=== PATIENT | male | born 1950 | race Caucasian/White ===

== ENCOUNTER → 2018-05-29 13:57 | Outpatient (CLI) | payer MEDICARE, SELFPAY ==
--- NOTE | 2018-05-29 | DI.RAD.S_ITS ---
PROCEDURE: XR LUMBAR SPINE 2-3V INDICATIONS: BACK PAIN TECHNIQUE: 3 views of the lumbar spine were acquired. COMPARISON: None. FINDINGS: Bones: 5 [id number] vertebrae are present. There is mildly levoscoliotic bony alignment. No vertebral body compression fractures. No suspicious bony lesions. Soft tissues: Overlying bowel gas pattern is normal. No suspicious soft tissue calcifications. IMPRESSION: Mild levoscoliosis, mild to moderate degenerative disc disease along the lumbosacral spine most prominent at L5-S1 and with associated facet osteoarthritis at L4-5 and L5-S1 to the degree that spinal and foraminal stenosis could be present. Dictated by: Greg Wiley M.D. on 05/29/2018 at 15:41 Approved by: Greg Wiley M.D. on 05/29/2018 at 15:42
== END ==
PROVIDERS: Family Provider Physician Assistant; PCP Physician Assistant; Visit Provider Physician Assistant
DX: M51.37 Other intervertebral disc degeneration, lumbosacral region (principal); M47.816 Spondylosis without myelopathy or radiculopathy, lumbar region; M47.817 Spondylosis without myelopathy or radiculopathy, lumbosacral region; M41.86 Other forms of scoliosis, lumbar region; M54.9 Dorsalgia, unspecified
CPT/HCPCS: 72100

== ENCOUNTER → 2018-07-11 14:01 | Outpatient (CLI) | payer MEDICARE, SELFPAY ==
--- NOTE | 2018-07-11 | DI.MRI.S_ITS ---
PROCEDURE: MR LUMBAR SPINE WO CON INDICATIONS: LOW BACK PAIN TECHNIQUE: Noncontrast sagittal T1 spin echo and T2 fast echo, sagittal STIR, axial T1 and T2 fast spin echo through the lumbar spine. In this patient, coronal T2-weighted images were also performed. COMPARISON: [facility], CT, KIDNEY/ URETER/BLADDER, 12/15/2009, 12:47. [facility], CR, XR LUMBAR SPINE 2-3V, 05/29/2018, 13:42. FINDINGS: Image quality: Excellent. Alignment and Curvature: Mild levoconvex scoliotic curvature is noted. Bone Marrow: Marrow is of normal overall signal. No acute vertebral body compression fractures. Scattered foci are seen, which are hyperintense on T1-weighted and T2-weighted imaging, which are most consistent with benign vertebral body hemangiomas. The most prominent of these is seen within the L1 vertebral body. On the 2009 CT, there is a characteristic vertical corduroy trabecular pattern seen. Spinal Cord: Conus medullaris terminates at the L1 level. Visualized cord demonstrates normal signal and size. Paraspinous Soft Tissues: No paravertebral masses. T12-L1: Normal appearance. L1-L2: Normal appearance. L2-L3: No significant abnormality is seen. L3-L4: The disc height is well-preserved. Loss of disc signal is seen at this level. Mild generalized disc bulge is seen. No significant neural foraminal or central canal narrowing are seen. L4-L5: The disc height is well-preserved. Loss of disc signal is seen at this level. Mild to moderate disc bulge is seen. Mild to moderate facet hypertrophy is seen. Minimal bilateral neural foraminal narrowing is seen. Mild central canal narrowing is seen. L5-S1: The disc height and disc signal are relatively well-preserved. Mild disc bulge is seen, which is eccentric to the left. No significant neural foraminal or central canal narrowing are seen. IMPRESSION: Levoconvex scoliotic curvature and overall mild lower lumbar spine degenerative change. Dictated by: Luis Wick M.D. on 07/11/2018 at 14:52 Approved by: Luis Wick M.D. on 07/11/2018 at 14:56
== END ==
PROVIDERS: Family Provider Physician Assistant; PCP Physician Assistant; Visit Provider Orthopaedic Surgery
DX: M51.26 Other intervertebral disc displacement, lumbar region (principal); M51.27 Other intervertebral disc displacement, lumbosacral region; M48.061 Spinal stenosis, lumbar region without neurogenic claudication; M41.9 Scoliosis, unspecified
CPT/HCPCS: 72148

== ENCOUNTER → 2020-11-03 15:07 | Outpatient (CLI) | payer OTHER, SELFPAY | PROVIDERS: Family Provider Physician Assistant; PCP Family Medicine Sports Medicine; Referring Provider Family Medicine Sports Medicine; Visit Provider Family Medicine | DX: E11.621 Type 2 diabetes mellitus with foot ulcer (principal); L97.411 Non-pressure chronic ulcer of right heel and midfoot limited to breakdown of skin; E11.40 Type 2 diabetes mellitus with diabetic neuropathy, unspecified; Z79.4 Long term (current) use of insulin | CPT/HCPCS: 11042; 99204 ==

== ENCOUNTER → 2020-11-10 09:10 | Outpatient (CLI) | payer OTHER, SELFPAY | LOC: WC 09:11 | PROVIDERS: Family Provider Physician Assistant; PCP Family Medicine Sports Medicine; Referring Provider Family Medicine Sports Medicine; Visit Provider Family Medicine | DX: E11.40 Type 2 diabetes mellitus with diabetic neuropathy, unspecified (principal); L97.411 Non-pressure chronic ulcer of right heel and midfoot limited to breakdown of skin | CPT/HCPCS: 11042; 99213 ==

== ENCOUNTER → 2020-11-24 13:40 | Outpatient (CLI) | payer OTHER, SELFPAY | PROVIDERS: Family Provider Physician Assistant; PCP Family Medicine Sports Medicine; Referring Provider Family Medicine Sports Medicine; Visit Provider Family Medicine | DX: E11.621 Type 2 diabetes mellitus with foot ulcer (principal); L97.411 Non-pressure chronic ulcer of right heel and midfoot limited to breakdown of skin; E11.40 Type 2 diabetes mellitus with diabetic neuropathy, unspecified | CPT/HCPCS: 11042 ==

== ENCOUNTER → 2020-12-01 14:24 | Outpatient (CLI) | payer OTHER, SELFPAY | PROVIDERS: Family Provider Physician Assistant; PCP Family Medicine Sports Medicine; Referring Provider Family Medicine Sports Medicine; Visit Provider Family Medicine | DX: E11.621 Type 2 diabetes mellitus with foot ulcer (principal); L97.411 Non-pressure chronic ulcer of right heel and midfoot limited to breakdown of skin; E11.40 Type 2 diabetes mellitus with diabetic neuropathy, unspecified; R60.0 Localized edema | CPT/HCPCS: 99213 ==

== ENCOUNTER → 2020-12-15 15:50 | Outpatient (CLI) | payer OTHER, SELFPAY | LOC: WC 15:50 | PROVIDERS: Family Provider Physician Assistant; PCP Family Medicine Sports Medicine; Referring Provider Family Medicine Sports Medicine; Visit Provider Family Medicine | DX: E11.621 Type 2 diabetes mellitus with foot ulcer (principal); L97.411 Non-pressure chronic ulcer of right heel and midfoot limited to breakdown of skin; E11.40 Type 2 diabetes mellitus with diabetic neuropathy, unspecified | CPT/HCPCS: 97597 ==

== ENCOUNTER → 2020-12-22 14:03 | Outpatient (CLI) | payer OTHER, SELFPAY | LOC: WC 14:04 | PROVIDERS: Family Provider Physician Assistant; PCP Family Medicine Sports Medicine; Referring Provider Family Medicine Sports Medicine; Visit Provider Family Medicine | DX: E11.621 Type 2 diabetes mellitus with foot ulcer (principal); L97.411 Non-pressure chronic ulcer of right heel and midfoot limited to breakdown of skin; E11.40 Type 2 diabetes mellitus with diabetic neuropathy, unspecified | CPT/HCPCS: 97597 ==

== ENCOUNTER → 2020-12-29 13:43 | Outpatient (CLI) | payer OTHER, SELFPAY | LOC: WC 13:44 | PROVIDERS: Family Provider Physician Assistant; PCP Family Medicine Sports Medicine; Referring Provider Family Medicine Sports Medicine; Visit Provider Family Medicine | DX: E11.621 Type 2 diabetes mellitus with foot ulcer (principal); E11.40 Type 2 diabetes mellitus with diabetic neuropathy, unspecified | CPT/HCPCS: 99213 ==

== ENCOUNTER 2022-01-16 20:45 | Emergency (ER) | payer OTHER, SELFPAY ==
[2022-01-16 20:57] VITALS: BP 161/84; PULSE 95; RESP 18; TEMP 36.6; O2SAT 95; BMI 45.0
--- NOTE | 2022-01-16 21:00 | DI.RAD.S_ITS ---
PROCEDURE: XR FOOT RT MIN 3V INDICATIONS: foreign body TECHNIQUE: 3 views of the foot were acquired. COMPARISON: None. FINDINGS: Bones: No fractures or dislocations. No suspicious bony lesions. Calcaneal spurs noted. Soft tissues: No tibiotalar joint effusion. Achilles tendon appears normal. Metallic nail foreign body noted in the medial soft tissues extending from the plantar surface IMPRESSION: Thin nail foreign body in the midfoot medial soft tissues extending from the plantar surface. Calcaneal spurs Approved by: Marcial Crowder M.D. on 01/16/2022 at 21:18
--- NOTE | 2022-01-16 22:10 | ED_ITS ---
HPI - Skin/Abscess/Foreign Bdy General Chief complaint: Skin/Abscess/Foreign Body Stated complaint: Stepped on nail right foot Time Seen by Provider: 01/16/22 20:58 Source: patient Mode of arrival: Ambulatory History of Present Illness HPI narrative: 71M non smoker with peripheral neuropathy presents with the chief complaint of foreign body in right foot. He is unclear about the specifics because he has neuropathy. He thinks he was walking barefoot but and thinks it may have happened a few days ago. He denies much the way pain. He has no fever chills. He denies nausea or vomiting. He has no drainage. Related Data Home Medications Medication Instructions Recorded Confirmed LEVOTHYROXINE SODIUM 300 mcg #0 09/27/12 11/10/21 aspirin 81 mg tablet,delayed 81 mg PO QDAY #0 09/27/12 11/10/21 release glimepiride 4 mg tablet (Amaryl) 4 mg PO BIDCC #0 09/27/12 11/10/21 hydroxyzine HCl 25 mg tablet 25 mg PO QDAY #0 09/27/12 11/10/21 metformin 500 mg tablet 1,500 mg PO #0 09/27/12 11/10/21 (Glucophage) omeprazole 20 mg capsule,delayed #0 09/27/12 11/10/21 release ramipril 10 mg capsule 10 mg PO BID #0 09/27/12 11/10/21 zolpidem 10 mg tablet (Ambien) #0 09/27/12 11/10/21 gabapentin 300 mg capsule 300 mg PO TID #0 01/15/17 11/10/21 (Neurontin) hydrocodone bitartrate 10 mg 10 mg PO QID #0 01/15/17 11/10/21 capsule, oral only, extended rel 12 hr (Zohydro ER) ResMed AirSense 11 Auto 11/10/21 11/10/21 Previous Rx's Medication Instructions Recorded ciprofloxacin HCl 500 mg tablet 500 mg PO BID #20 tab 01/16/22 (Cipro) Allergies Allergy/AdvReac Type Severity Reaction Status Date / Time codeine [CODEINE] Allergy Unknown Verified 01/16/22 21:00 Review of Systems Review of Systems Narrative: GENERAL: Denies chills, fatigue, malaise, fever, sweats. HEENT: Denies sinus pain, ear pain, sore throat, difficulty swallowing, dizziness. RESPIRATORY: Denies dyspnea, cough, wheezing, hemoptysis, sputum. CARDIOVASCULAR: Denies chest pain, palpitations, orthopnea, edema, GASTROINTESTINAL: Denies nausea, vomiting, abdominal pain, diarrhea, constipation, melena. : Denies dysuria, frequency, incontinence, hematuria, urinary retention. MUSCULOSKELETAL: See HPI SKIN: Denies rash, skin lesions, or other NEUROLOGIC: Denies weakness, headache, numbness, change in speech, confusion, seizures, incoordination. PSYCHIATRIC: No concerning psychosocial issues. 12 point review of systems is negative except for those stated above Patient History Medical History Excessive daytime sleepiness Insomnia, persistent Morbid obesity with body mass index (BMI) of 40.0 to 49.9 Obstructive sleep apnea of adult Snoring Social History Smoking Status: Never smoker Smoking Status: Never smoker alcohol intake frequency: other Substance Use Type: does not use Exam Narrative Exam Narrative: GEN: AOx3 and in mild distress EYES: Pupils are equal, round, and reactive to light and accommodation. Extraoccular muscles are intact bilaterally. There is no subconjunctival hemorrhage or exudate. CHEST: Lungs are clear to auscultation bilaterally and free of wheezes, rales, or rhonchi. Heart rate is regular rhythm, there are no murmurs, clicks, rubs, or gallops. There is no chest wall tenderness. ABD: Abdomen is soft and nontender. There is no guarding or rebound. Bowel sounds are normal in all 4 quadrants. There is no mass or organomegaly. EXT: Obvious foreign body consistent with sewing needle and sole of right foot Full painless ROM of all extremities with no loss of sensation or strength. SKIN: Warm, pink, and dry. No erythema or rash Initial Vital Signs Initial Vital Signs: Vital Signs Temperature 98 F 01/16/22 20:57 Pulse Rate 95 H 01/16/22 20:57 Respiratory Rate 18 01/16/22 20:57 Blood Pressure 161/84 H 01/16/22 20:57 Pulse Oximetry 95 01/16/22 20:57 Procedures Foreign Body OTHER Time Out Performed: yes Foreign Body Removal Site: right and foot Description of foreign body: needle Sedation/Analgesia: none Technique: manual removal Confirmed by:: direct visualization Complications: none Post-procedure exam: awake, alert Course Orders Ordered: ED Orders 01/16/22 21:00 XR foot RT min 3V Stat Discontinued Medications Diphtheria/Tetanus/Acell Pertussis (Tet,Diph,Pertuss(Acell),Vac/Pf 0.5 Ml Syringe) 0.5 ml IM .ONCE ONE Stop: 01/16/22 21:01 Last Admin: 01/16/22 22:22 Dose: 0.5 ml Documented by: LISA Levofloxacin (Levofloxacin 250 Mg Tablet) 500 mg PO NOW ONE Stop: 01/16/22 22:12 Last Admin: 01/16/22 22:21 Dose: 500 mg Documented by: LISA Lidocaine/Sodium Bicarbonate (Lido 1%/Sod Bicarb 8.4% (10ml) 10 Ml Syringe) 10 ml INJ NOW ONE Stop: 01/16/22 22:12 Last Admin: 01/16/22 22:25 Dose: Not Given Documented by: LISA Vital Signs Vital signs: Vital Signs - 8 hr 01/16/22 22:57 Pulse Rate 98 H Respiratory Rate 18 Blood Pressure 160/90 H Pulse Oximetry 98 MDM - Skin/Abscess/Foreign Bdy Imaging Data Extremity x-ray #1: Radiologist's Impression: [place] [address] XRay Report Signed Patient: Arnold Viera MR#: [id number] : 1950 Acct:[id number] Age/Sex: 71 / M Date of Service: 01/16/22 Loc: ED Accession Number: [id number] ?? Procedure: XR foot RT min 3V Ordering Provider: Aj Bonilla D.O. PROCEDURE:? XR FOOT RT MIN 3V ? INDICATIONS:? foreign body ? TECHNIQUE:? 3 views of the foot were acquired.? ? COMPARISON:? None. ? FINDINGS:? ? Bones:? No fractures or dislocations.? No suspicious bony lesions.? Calcaneal spurs noted. ? Soft tissues:? No tibiotalar joint effusion.? Achilles tendon appears normal.? Metallic nail foreign body noted in the medial soft tissues extending from the plantar surface ? ? IMPRESSION:? ? Thin nail foreign body in the midfoot medial soft tissues extending from the plantar surface. ? Calcaneal spurs ? ? Approved by: Marcial Crowder M.D. on 01/16/2022 at 21:18? Discharge Plan Departure Patient Disposition: Home Clinical Impression: Foreign body (FB) in soft tissue Instructions: DI for Removal of Foreign Body From Skin Activity Restrictions/Additional Instructions: *You have been diagnosed with [foreign body removed from right foot *What to do: *Please continue to take your regular medications as directed. [X ] New medication prescriptions sent to your pharmacy: [ [facility] in [place]] [ ] New medication written as a paper prescription [ ] No new medications given *Please follow up with your primary care provider in 2-3 days, call for an appointment. Let them know you were seen in the Emergency Department and that we ask that you be seen in follow up. We will electronically transmit a record of today's note if your PCP is in our system *If you do not have a primary care provider please contact the [facility] Resource line at [phone]. They will ask some questions about your medical history and help get you set up with a doctor in the community. *Return to Emergency Department if you should have any new, worsening or concerning symptoms, such as [fever greater than 101 F, shaking chills, worsening pain, persistent vomiting or other bothersome symptoms] Prescriptions: New ciprofloxacin HCl [Cipro] 500 mg tablet 500 mg PO BID Qty: 20 0RF No Action hydroxyzine HCl 25 MG tablet 25 mg PO QDAY Qty: 0 0RF aspirin 81 MG tablet,delayed release (DR/EC) 81 mg PO QDAY Qty: 0 0RF glimepiride [Amaryl] 4 MG tablet 4 mg PO BIDCC Qty: 0 0RF metformin [Glucophage] 500 MG tablet 1,500 mg PO Qty: 0 0RF zolpidem [Ambien] 10 MG tablet Qty: 0 0RF ramipril 10 MG capsule 10 mg PO BID Qty: 0 0RF omeprazole 20 MG capsule,delayed release(DR/EC) Qty: 0 0RF LEVOTHYROXINE SODIUM 300 mcg Qty: 0 0RF gabapentin [Neurontin] 300 MG capsule 300 mg PO TID Qty: 0 0RF hydrocodone bitartrate [Zohydro ER] 10 MG capsule, oral only, ER 12hr 10 mg PO QID Qty: 0 0RF (DME) ResMed AirSense 11 Auto See Rx Instructions .ROUTE .MEDSUPPLY 0RF Rx Instructions: CPAP Min: 8 Max: 16 DME: PHM Referrals: Blaze Gilmore MD [Primary Care Provider] -
[2022-01-16] MEDS: levoFLOXacin 250 MG TABLET 500 MG PO (22:21)
[2022-01-16] MEDS: TET,DIPH,PERTUSS(ACELL),VAC/PF 0.5 ML SYRINGE IM (22:22)
--- NOTE | 2022-01-16 22:34 | PC.NURSE ---
Dorsal and ventral puncture site on R foot cleaned with CHG and dressed
[2022-01-16 22:57] VITALS: BP 160/90; PULSE 98; RESP 18; O2SAT 98
== END 2022-01-16 23:00 | disposition home or self-care (01) ==
PROVIDERS: Emergency Provider Emergency Medicine; Family Provider Physician Assistant; PCP Family Medicine
DX: M79.5 Residual foreign body in soft tissue (principal); Z23 Encounter for immunization; W45.8XXA Other foreign body or object entering through skin, initial encounter
CPT/HCPCS: 10120; 73630; 90471; 99283; 90715

== ENCOUNTER → 2022-08-23 14:40 | Outpatient (CLI) | payer OTHER, SELFPAY ==
--- NOTE | 2022-08-23 | DI.ECHO.S_ITS ---
[facility]---------+ [facility] +---------+ : : [address] : [place] [address] : : : : [id number] : : : : Phone: [phone] Echocardiogram Report + + :Name: YO LOCKWOOD Study Date: 08/23/2022 Height: 70 in : :[facility] ReadingLocation: Weight: 309 lb : : Gender: Male BSA: 2.5 m2 : :: 1950 Age: 72 yrs BP: 214/110 mmHg: :Reason For Study: Murmur : :Ordering Physician: VI, : :[place] Performed By: Wilmer Salazar : :Referring: [place] LEBRON : + + Interpretation Summary Normal left ventricle size with ejection fraction 60-65%. Mild aortic valve sclerosis. Procedure: A two-dimensional transthoracic echocardiogram with color flow and Doppler was performed. The study quality was technically adequate. There is no prior echocardiogram noted for this patient. A contrast injection of Definity was performed to improve assessment of LV function. The patient was in sinus tachycardia with heart rates between 88-100 bpm during the exam. Left Ventricle: The left ventricle is normal in size and wall thickness. The ejection fraction is estimated to be 60-65%. There are no focal wall motion abnormalities. Diastolic function could not be accurately assessed due to unobtainable data. Right Ventricle: The right ventricle is normal in size and function. Atria: Both atria are normal in size. The interatrial septum grossly appears intact with no obvious evidence for an atrial septal defect. Mitral Valve: The mitral valve is normal in structure and function. There is no mitral regurgitation noted. Aortic Valve: There is mild aortic valve sclerosis. No aortic regurgitation is present. Tricuspid Valve: The tricuspid valve is normal in structure and function. There is a trace or physiologic amount of tricuspid regurgitation. Pulmonary artery pressures cannot be estimated because of the lack of a measurable TR jet velocity. Pulmonic Valve: The pulmonic valve is normal in structure and function. There is no pulmonic valvular regurgitation. Great Vessels: The aortic root is normal size. The dimensions of the ascending aorta are normal. The inferior vena cava was not visualized. Pericardium/ Pleura There is no pericardial effusion. There is no pleural effusion. MMode/2D Measurements & Calculations LVIDd: 4.5 cm LVOT diam: 2.2 cm LVIDs: 3.2 cm Ao root diam: 3.5 cm FS: 28.9 % asc Aorta Diam: 3.6 cm IVSd: 1.0 cm LVPWd: 1.1 cm LV austin. diameter/BSA (cm/m^2): 1.8 LV sys. diameter/BSA (cm/m^2): 1.3 LA dimension: 2.8 cm RA long axis: 5.9 cm LA A2 area: 18.2 cm2 LA A4 area: 20.9 cm2 LA length (vol): 6.1 cm LA vol: 53.4 ml LA vol index: 21.3 ml/m2 TAPSE_phl: 2.4 cm Doppler Measurements & Calculations Ao V2 max: 218.0 cm/sec LVOT Max Db: 129.0 cm/sec Ao V2 mean: 149.0 cm/sec LV V1 max P.7 mmHg Ao max P.0 mmHg LV V1 VTI: 23.0 cm Ao mean P.0 mmHg VINOD(I,D): 2.3 cm2 Ao V2 VTI: 38.6 cm VINOD(V,D): 2.2 cm2 sev ratio: 0.60 VINOD indexed to BSA (cm^2/m^2): 0.90 MV E max db: 104.0 cm/sec SV(LVOT): 87.4 ml MV A max db: 116.0 cm/sec MV E/A: 0.90 Med Peak E' Db: 5.4 cm/sec E/E' med: 19.2 Lat Peak E' Db: 7.2 cm/sec E/E' lat: 14.5 E/e' average: 16.9 MV dec time: 0.25 sec AV VR_phl: 0.59 MV P1/2t-pr_phl: 73.0 msec VINOD(VTI)/BSA_phl: 0.90 Electronically signed by: Ashwin Pat on Reading Physician:08/23/2022 08:23 PM
== END ==
PROVIDERS: Family Provider Physician Assistant; PCP Family Medicine; Referring Provider Internal Medicine; Visit Provider Family Medicine
DX: I35.8 Other nonrheumatic aortic valve disorders (principal); R01.1 Cardiac murmur, unspecified
CPT/HCPCS: 93306; C8929; Q9957

== ENCOUNTER 2024-01-22 19:50 | Emergency (ER) | payer OTHER, SELFPAY ==
[2024-01-22 20:09] VITALS: BP 156/74; PULSE 107; RESP 20; TEMP 37; O2SAT 96; BMI 43.1
--- NOTE | 2024-01-22 20:47 | PC.NURSE ---
Bilateral lower extremity sensation starts at mid oates. Bilateral upper extremity sensation can be distinguish in finger. Pt able to wiggle fingers and feet. However, lower extremities cause shooting spasms.
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
[2024-01-22] MEDS: MORPHINE 4 MG/ML INJ IM (22:58)
[2024-01-22 23:02] VITALS: BP 141/75; PULSE 120; RESP 16; O2SAT 93
== END 2024-01-22 23:11 | disposition home or self-care (01) ==
PROVIDERS: Emergency Provider Emergency Medicine; Family Provider Physician Assistant; PCP Family Medicine
DX: G62.9 Polyneuropathy, unspecified (principal)
CPT/HCPCS: 82962; 96372; 99283; J2270

== ENCOUNTER 2024-01-23 16:11 | Emergency (ER) | payer OTHER, SELFPAY ==
[2024-01-23 16:35] VITALS: BP 146/72; PULSE 107; RESP 20; TEMP 38.4; O2SAT 92; BMI 45.8
--- NOTE | 2024-01-23 16:42 | DI.RAD.S_ITS ---
PROCEDURE: XR CHEST 1V INDICATIONS: suspected sepsis TECHNIQUE: One view of the chest was acquired. COMPARISON: [facility], , CHEST 2 VIEW, 10/22/2014, 13:34. FINDINGS: Surgical changes and devices: None. Lungs and pleura: Very low lung volumes. Possible left lung base opacity. Mediastinum: Enlarged cardiomediastinal contours are indeterminate in the setting of very low lung volumes. Possible hiatal hernia is seen. Bones and chest wall: Degenerative changes. IMPRESSION: Limited single view radiograph with very low lung volumes. There is a possible left lung base opacity which may be infectious/inflammatory versus atelectasis. Consider future imaging surveillance to assess for resolution. Enlarged cardiomediastinal contours are indeterminate in the setting of low lung volumes. A possible hiatal hernia is also seen. Dictated by: Alan Gonsalves M.D. on 01/23/2024 at 17:47 Approved by: Alan Gonsalves M.D. on 01/23/2024 at 17:48
[2024-01-23 17:09] LABS: Add Manual Diff / Slide Review NO; Basophils Absolute Auto 0 /uL (0-100); Basophils Percent Auto 0.5 % (0-2); Eosinophils Absolute Auto 0 /uL (0-450); Eosinophils Percent Auto 0.5 % (2-4); Hematocrit 35.4 % (41-53); Hemoglobin 11.9 g/dL (13.5-17.5); Lymphocytes Absolute Auto 900 /uL (1100-4500); Lymphocytes Percent Auto 9.4 % (25-40); Mean Corpuscular HGB Conc 33.5 % (30-36); Mean Corpuscular Hemoglobin 29.9 PG (26-34); Mean Corpuscular Volume 89.3 fL (80-100); Monocytes Absolute Auto 600 /uL (0-900); Neutrophils Absolute Auto 7800 /uL (1500-7000); Neutrophils Percent Auto 83.6 % (50-75); Platelet Count 189 X10^3/uL (150-400); Red Blood Cell Count 3.97 X10^6/uL (4.5-5.9); Red Cell Distribution Width 14.2 % (11.6-14.8); White Blood Cell Count 9.4 X10^3/uL (4.5-11.0)
[2024-01-23 17:14] LABS: INR 1.4 (0.9-1.3); Prothrombin Time 16.2 SECONDS (9.4-12.5)
[2024-01-23 17:17] LABS: PTT Partial Thromboplastin Tim 40 SECONDS (25.1-36.5)
[2024-01-23 17:22] LABS: Lactate (Lactic Acid) 1.8 mmol/L (0.7-2.1)
[2024-01-23 17:23] LABS: Alanine Aminotransferase 27 IU/L (<50); Albumin 4.7 g/dL (3.5-5.0); Albumin Globulin Ratio 1.7 (1.0-2.8); Alkaline Phosphatase 59 U/L (38-126); Aspartate Aminotransferase 22 IU/L (17-59); BUN Creatinine Ratio 19.2 (6-22); Bilirubin Total 0.5 mg/dL (0.2-1.3); Blood Urea Nitrogen 14 mg/dL (9-20); Calcium 9.2 mg/dL (8.4-10.2); Carbon Dioxide 24 mmol/L (22-32); Chloride 100 mmol/L (98-107); Estimated Glomerular Filt Rate > 60 mL/min (>60); Globulin 2.8 g/dL (1.7-4.1); Glucose 193 mg/dL (80-110); HEMOLYSIS < 15 (0-50); Lipase 59 U/L (23-300); Potassium 4.8 mmol/L (3.4-5.1); Sodium 132 mmol/L (137-145); Total Protein 7.5 g/dL (6.3-8.2)
[2024-01-23 17:47] VITALS: PULSE 106; RESP 26
[2024-01-23] MEDS: SODIUM CHLORIDE 0.9% 1,000 ML 1000 ML IV (17:49)
[2024-01-23 17:50] VITALS: BP 146/69; PULSE 107; RESP 26; O2SAT 94
[2024-01-23 18:00] VITALS: BP 163/76; PULSE 108; RESP 31; O2SAT 94
--- NOTE | 2024-01-23 18:01 | ED.FEVER ---
HPI - Fever General Chief Complaint: Fever Stated Complaint: muslce spasm/fever/ PCP want blood/ XRAY Time Seen by Provider: 01/23/24 17:28 Source: patient and family Mode of arrival: Wheelchair History of Present Illness HPI Narrative: 73-year-old male with history of diabetes, gout, hypothyroidism, chronic back pain presents from his doctor's office for fever. Patient was seen last night in our emergency department for neuropathy and subsequently discharged home. He saw his doctor's office today for a follow up where he was found to have a fever of 104. He was referred to the emergency department for workup. Patient states that other than his neuropathy flare-up he has felt in his usual state of health. He states his primary concern is the irritating prickling/burning sensation in his hands and feet from his neuropathy. Related Data Home Medications Medication Instructions Recorded Confirmed LEVOTHYROXINE SODIUM 300 mcg ##0 09/27/12 05/12/22 aspirin 81 mg tablet,delayed 81 mg PO QDAY ##0 09/27/12 05/12/22 release glimepiride 4 mg tablet (Amaryl) 4 mg PO BIDCC ##0 09/27/12 05/12/22 hydroxyzine HCl 25 mg tablet 25 mg PO QDAY ##0 09/27/12 05/12/22 metformin 500 mg tablet 1,500 mg PO ##0 09/27/12 05/12/22 (Glucophage) omeprazole 20 mg capsule,delayed ##0 09/27/12 05/12/22 release ramipril 10 mg capsule 10 mg PO BID ##0 09/27/12 05/12/22 zolpidem 10 mg tablet (Ambien) ##0 09/27/12 05/12/22 gabapentin 300 mg capsule 300 mg PO TID ##0 01/15/17 05/12/22 (Neurontin) hydrocodone bitartrate 10 mg 10 mg PO QID ##0 01/15/17 05/12/22 capsule, oral only, extended rel 12 hr (Zohydro ER) ResMed AirSense 11 Auto 11/10/21 05/12/22 Previous Rx's Medication Instructions Recorded ciprofloxacin HCl 500 mg tablet 500 mg PO BID #20 tabs 01/16/22 (Cipro) gabapentin 300 mg capsule 1,200 mg (4 x 300 mg) PO TID 3 01/22/24 days #36 caps cefpodoxime 200 mg tablet 200 mg PO Q12H #20 tabs 01/23/24 Allergies Allergy/AdvReac Type Severity Reaction Status Date / Time codeine [CODEINE] Allergy Severe Anaphylaxis Verified 01/23/24 16:41 Review of Systems Review of Systems Narrative: Negative except as noted above Patient History Medical History Morbid obesity with body mass index (BMI) of 40.0 to 49.9 Excessive daytime sleepiness Insomnia, persistent Obstructive sleep apnea of adult Snoring Social History Smoking Status: Never smoker Smoking Status: Never smoker alcohol intake frequency: other Substance Use Type: does not use Exam Initial Vital Signs Initial Vital Signs: Vital Signs Temperature 101.2 F H 01/23/24 16:35 Pulse Rate 107 H 01/23/24 16:35 Respiratory Rate 20 01/23/24 16:35 Blood Pressure 146/72 H 01/23/24 16:35 Pulse Oximetry 92 01/23/24 16:35 Oxygen Delivery Method Room Air 01/23/24 16:35 Const: Awake, alert, appears chronically unwell, nontoxic Cardiac: Tachycardia, regular rhythm RESP: unlabored, clear bilaterally, no wheezing GI: Soft, nontender, nondistended MSK: Atraumatic, full range of motion, pulses equal Skin: Warm, Dry, intact, no rashes Neuro: AO x3, CN II-XII grossly intact, moves all extremities Course Orders Ordered: ED Orders 01/23/24 18:50 Urinalysis and Microscopic Stat Urine Culture Stat 01/23/24 19:07 CT chest w con Stat Discontinued Medications Sodium Chloride (Normal Saline 0.9%) 1,000 mls @ 1,000 mls/hr IV BOLUS ONE Stop: 01/23/24 17:41 Last Infusion: 01/23/24 19:04 Dose: Infused Documented By: Admin: 01/23/24 17:49 Dose: 1,000 mls/hr Documented By: ANGELINE Ceftriaxone Sodium 2,000 mg/ (Sodium Chloride) 100 mls @ 200 mls/hr IV NOW ONE Stop: 01/23/24 19:52 Last Infusion: 01/23/24 21:05 Dose: Infused Documented By: Admin: 01/23/24 20:18 Dose: 200 mls/hr Documented By: Ondansetron HCl (Ondansetron 4 Mg/2 Ml Inj) 4 mg IV NOW PRN PRN Reason: Nausea And Vomiting Ondansetron HCl (Ondansetron 4 Mg Odt) 4 mg SL NOW PRN PRN Reason: Nausea And Vomiting Vital Signs Vital signs: Vital Signs - 8 hr 01/23/24 21:15 Pulse Rate 109 H Respiratory Rate 18 Blood Pressure 149/73 H Pulse Oximetry 94 Oxygen Delivery Method Room Air MDM - Fever Differential Diagnosis Differential diagnosis: Likely cellulitis, fever of unknown origin and gastroenteritis Lab Data 01/23/24 16:53 01/23/24 16:53 Labs: Lab Results 01/23/24 01/23/24 Range/Units 16:53 18:50 WBC 9.4 (4.5-11.0) X10^3/uL RBC 3.97 L (4.5-5.9) X10^6/uL Hgb 11.9 L (13.5-17.5) g/dL Hct 35.4 L (41-53) % MCV 89.3 (80-100) fL MCH 29.9 (26-34) PG MCHC 33.5 (30-36) % RDW 14.2 (11.6-14.8) % Plt Count 189 (150-400) X10^3/uL Neut % (Auto) 83.6 H (50-75) % Lymph % (Auto) 9.4 L (25-40) % [place] % (Auto) 6.0 (3-14) % Eos % (Auto) 0.5 L (2-4) % Baso % (Auto) 0.5 (0-2) % Neut # (Auto) 7800 H (4839-2263) /uL Lymph # (Auto) 900 L (5830-8222) /uL [place] # (Auto) 600 (0-900) /uL Eos # (Auto) 0 (0-450) /uL Baso # (Auto) 0 (0-100) /uL PT 16.2 H (9.4-12.5) SECONDS INR 1.4 H (0.9-1.3) APTT 40 H (25.1-36.5) SECONDS Sodium 132 L (137-145) mmol/L Potassium 4.8 (3.4-5.1) mmol/L Chloride 100 (98-107) mmol/L Carbon Dioxide 24 (22-32) mmol/L BUN 14 (9-20) mg/dL Creatinine 0.73 (0.66-1.25) mg/dL Estimated GFR > 60 (>60) mL/min BUN/Creatinine Ratio 19.2 (6-22) Glucose 193 H (80-110) mg/dL Lactate 1.8 (0.7-2.1) mmol/L Calcium 9.2 (8.4-10.2) mg/dL Total Bilirubin 0.5 (0.2-1.3) mg/dL AST 22 (17-59) IU/L ALT 27 (<50) IU/L Alkaline Phosphatase 59 (38-126) U/L Total Protein 7.5 (6.3-8.2) g/dL Albumin 4.7 (3.5-5.0) g/dL Globulin 2.8 (1.7-4.1) g/dL Albumin/Globulin Ratio 1.7 (1.0-2.8) Lipase 59 (23-300) U/L Procalcitonin 0.30 (<0.5) ng/mL Urine Color Yellow Urine Appearance Cloudy Urine pH 6.5 (4.5-8.0) Ur Specific [place] 1.010 (1.000-1.035) Urine Protein Trace H (Negative) Urine Glucose (UA) Negative (Negative) g/dL Urine Ketones Negative (NEGATIVE) Urine Occult Blood 1+ H (Negative) Urine Nitrate Negative (Negative) Urine Bilirubin Negative (NEGATIVE) Urine Urobilinogen 1.0 (0.2) E.U./dL Ur Leukocyte Esterase 1+ H (NEGATIVE) Urine RBC 0-1/hpf (0-5/HPF) Urine WBC 5-10/hpf H (0-5/HPF) Ur Squamous Epith Cells None seen (0-5/HPF) Urine Bacteria Many (>30) H (None) Ur Culture Indicated? Specimen cultured Vol Urine Centrifuged 10ml (spun) Chlamy pneumoniae PCR Not detected (Not Detect) Adenovirus (PCR) Not detected (Not Detect) B.parapertussis DNA PCR Not detected (Not Detecte) Coronavirus OC43 (PCR) Not detected (Not Detect) Coronavirus HKU1 (PCR) Not detected (Not Detect) Coronavirus 229E (PCR) Not detected (Not Detect) SARS-CoV-2 (PCR) Not detected (Not Detecte) Coronavirus NL63 (PCR) Not detected (Not Detect) Human Metapneumovir PCR Not detected (Not Detect) Influenza Type A (PCR) Not detected (Not Detect) Influenza Type B (PCR) Not detected (Not Detect) M. pneumoniae (PCR) Not detected (Not Detect) Parainfluenza 1 (PCR) Not detected (Not Detect) Parainfluenza 2 (PCR) Not detected (Not Detect) Parainfluenza 3 (PCR) Not detected (Not Detect) Parainfluenza 4 (PCR) Not detected (Not Detect) RSV (PCR) Not detected (Not Detect) Entero/Rhino (PCR) Not detected (Not Detect) Imaging Data Chest x-ray: Radiologist's Impression: PROCEDURE: XR CHEST 1V INDICATIONS: suspected sepsis TECHNIQUE: One view of the chest was acquired. COMPARISON: [facility], CHEST 2 VIEW, 10/22/2014, 13:34. FINDINGS: Surgical changes and devices: None. Lungs and pleura: Very low lung volumes. Possible left lung base opacity. Mediastinum: Enlarged cardiomediastinal contours are indeterminate in the setting of very low lung volumes. Possible hiatal hernia is seen. Bones and chest wall: Degenerative changes. IMPRESSION: Limited single view radiograph with very low lung volumes. There is a possible left lung base opacity which may be infectious/inflammatory versus atelectasis. Consider future imaging surveillance to assess for resolution. Enlarged cardiomediastinal contours are indeterminate in the setting of low lung volumes. A possible hiatal hernia is also seen. Dictated by: Alan Gonsalves M.D. on 01/23/2024 at 17:47 Approved by: Alan Gonsalves M.D. on 01/23/2024 at 17:48 CT scan - chest: Radiologist's Impression: PROCEDURE: CT CHEST W CON INDICATIONS: ABNORMAL CXR, UNEXPLAINED HIGH FEVER TECHNIQUE: After the administration of intravenous contrast, 5 mm thick sections acquired from the pulmonary apices to the posterior costophrenic angles. 1 mm axial lung, 5 mm thick coronal and sagittal reformats and 7 mm axial MIP were acquired. For radiation dose reduction, the following was used: automated exposure control, adjustment of mA and/or kV according to patient size. COMPARISON: [facility], CR, XR CHEST 1V, 01/23/2024, 17:17. FINDINGS: Image quality: Diagnostic Lungs and pleura: Mild left lung base opacity represents atelectasis. There are mild infectious/inflammatory ground-glass nodules in the right lung. No drainable pleural effusion. Mediastinum, heart, and esophagus: Coronary calcifications. Large hiatal hernia. No gastric distention. No pathologic lymph nodes by size criteria. Overall heart size within normal limits Chest wall and thyroid: Unremarkable Upper abdomen: Cholecystectomy clips. No gross abnormality, partially visualized upper abdomen. Bones: Degenerative changes, no acute or suspicious osseous findings. IMPRESSION: Mild infectious/inflammatory ground-glass centrilobular nodules in the right lung. Consider future imaging surveillance to assess for resolution. The left lung base opacity may represent atelectasis. Peritoneal large hiatal hernia. Other findings above. Dictated by: Alan Gonsalves M.D. on 01/23/2024 at 20:10 Approved by: Alan Gonsalves M.D. on 01/23/2024 at 20:13 [facility] Narrative Medical decision making narrative: Patient presenting for fever at his primary care doctor's office. Patient appears chronically unwell but not acutely toxic. He states that other than his neuropathy he feels like he was in his usual state of health. Blood cultures, labs ordered. Tylenol ordered for fever. Laboratory work shows WBC count 9.4, hemoglobin 11.9, platelets 189, sodium 132, potassium 4.8, creatinine 0.73, glucose 193, normal liver enzymes. Chest x-ray limited due to low lung volumes, there is possible concerning left lung opacity. Respiratory panel negative. Still pending urinalysis. With uncertain source of fever and abnormal chest x-ray a CT scan of the chest was ordered, which showed some infectious versus inflammatory nodules but no left-sided opacity concerning for pneumonia. Urinalysis positive for leukocyte esterase, some WBCs, many bacteria. Specimen sent for culture. Patient given 2 g of Rocephin. Fever decreased with Tylenol. He was resting comfortably in bed, eating a burger that his brought in for dinner, no acute distress. Patient informed of all lab and imaging findings, antibiotics sent to pharmacy of choice. Patient has neuropathy may improve with treatment of the urinary tract infection. Close PCP follow up advised. Discharge Plan Departure Patient Disposition: Home Clinical Impression: Acute UTI, Fever Instructions: DI for Urinary Tract Infection (UTI) Activity Restrictions/Additional Instructions: Your urine showed signs of infection. You were given an antibiotic tonight and I will send antibiotics to your pharmacy. Take all antibiotics as prescribed. Please follow up with your primary care physician. You may take Tylenol and ibuprofen as needed for fever. Prescriptions: New cefpodoxime 200 mg tablet 200 mg PO Q12H Qty: 20 0RF Rx Instructions: must administer with a meal/food No Action hydroxyzine HCl 25 MG tablet 25 mg PO QDAY Qty: 0 aspirin 81 MG tablet,delayed release (DR/EC) 81 mg PO QDAY Qty: 0 glimepiride [Amaryl] 4 MG tablet 4 mg PO BIDCC Qty: 0 metformin [Glucophage] 500 MG tablet 1,500 mg PO Qty: 0 zolpidem [Ambien] 10 MG tablet Qty: 0 ramipril 10 MG capsule 10 mg PO BID Qty: 0 omeprazole 20 MG capsule,delayed release(DR/EC) Qty: 0 LEVOTHYROXINE SODIUM 300 mcg Qty: 0 gabapentin [Neurontin] 300 MG capsule 300 mg PO TID Qty: 0 hydrocodone bitartrate [Zohydro ER] 10 MG capsule, oral only, ER 12hr 10 mg PO QID Qty: 0 ciprofloxacin HCl [Cipro] 500 mg tablet 500 mg PO BID Qty: 20 0RF gabapentin 300 mg capsule 1,200 mg PO TID 3 Days Qty: 36 0RF (DME) ResMed AirSense 11 Auto See Rx Instructions .Route .MEDSUPPLY Rx Instructions: CPAP Min: 8 Max: 16 DME: PHM Referrals: Blaze Gilmore MD [Primary Care Provider] - Stand Alone Forms: Patient Portal/API
[2024-01-23 18:30] VITALS: PULSE 109; RESP 61
[2024-01-23 18:58] LABS: Adenovirus Not Detected (Not Detect); B. parapertussis Not Detected (Not Detecte); Bordetella pertussis Not Detected (Not Detect); Chlamydophila pneumoniae Not Detected (Not Detect); Coronavirus 229E Not Detected (Not Detect); Coronavirus HKU1 Not Detected (Not Detect); Coronavirus NL 63 Not Detected (Not Detect); Coronavirus OC43 Not Detected (Not Detect); Human Metapneumovirus Not Detected (Not Detect); Human Rhinovirus/Enterovirus Not Detected (Not Detect); Influenza A Not Detected (Not Detect); Influenza B Not Detected (Not Detect); Mycoplasma pneumoniae Not Detected (Not Detect); Parainfluenza Virus 1 Not Detected (Not Detect); Parainfluenza Virus 2 Not Detected (Not Detect); Parainfluenza Virus 3 Not Detected (Not Detect); Parainfluenza Virus 4 Not Detected (Not Detect); Respiratory Syncytial Virus Not Detected (Not Detect); SARS- CoV-2 Not Detected (Not Detecte)
--- NOTE | 2024-01-23 19:07 | DI.CT.S_ITS ---
PROCEDURE: CT CHEST W CON INDICATIONS: ABNORMAL CXR, UNEXPLAINED HIGH FEVER TECHNIQUE: After the administration of intravenous contrast, 5 mm thick sections acquired from the pulmonary apices to the posterior costophrenic angles. 1 mm axial lung, 5 mm thick coronal and sagittal reformats and 7 mm axial MIP were acquired. For radiation dose reduction, the following was used: automated exposure control, adjustment of mA and/or kV according to patient size. COMPARISON: [facility], CR, XR CHEST 1V, 01/23/2024, 17:17. FINDINGS: Image quality: Diagnostic Lungs and pleura: Mild left lung base opacity represents atelectasis. There are mild infectious/inflammatory ground-glass nodules in the right lung. No drainable pleural effusion. Mediastinum, heart, and esophagus: Coronary calcifications. Large hiatal hernia. No gastric distention. No pathologic lymph nodes by size criteria. Overall heart size within normal limits Chest wall and thyroid: Unremarkable Upper abdomen: Cholecystectomy clips. No gross abnormality, partially visualized upper abdomen. Bones: Degenerative changes, no acute or suspicious osseous findings. IMPRESSION: Mild infectious/inflammatory ground-glass centrilobular nodules in the right lung. Consider future imaging surveillance to assess for resolution. The left lung base opacity may represent atelectasis. Peritoneal large hiatal hernia. Other findings above. Dictated by: Alan Gonsalves M.D. on 01/23/2024 at 20:10 Approved by: Alan Gonsalves M.D. on 01/23/2024 at 20:13
[2024-01-23 19:23] LABS: Appearance Urine UA CLOUDY; Bilirubin Urine UA NEGATIVE (NEGATIVE); Color Urine UA YELLOW; Glucose Urine UA NEGATIVE (Negative); Ketones Urine UA NEGATIVE (NEGATIVE); Leukocyte Esterase Urine UA 1+ (NEGATIVE); Nitrite Urine UA NEGATIVE (Negative); Occult Blood Urine UA 1+ (Negative); Protein Urine UA TRACE (Negative); pH Urine UA 6.5 (4.5-8.0)
[2024-01-23 19:45] LABS: Bacteria Urine Many (>30); Culture Indicated Urine Specimen Cultured; RBC Urine 0-1/HPF (0-5/HPF); Squamous Epithelial Cell Urine None Seen (0-5/HPF); Urine Volume 10mL (spun); WBC Urine 5-10/HPF (0-5/HPF)
[2024-01-23] MEDS: cefTRIAXone 2,000 MG in SODIUM CHLORIDE 0.9% 100 ML 200 MG IV (20:18)
[2024-01-23 21:15] VITALS: BP 149/73; PULSE 109; RESP 18; O2SAT 94
== END 2024-01-23 21:16 | disposition home or self-care (01) ==
PROVIDERS: Emergency Medicine; Emergency Provider Emergency Medicine; Family Provider Physician Assistant; PCP Family Medicine
DX: N39.0 Urinary tract infection, site not specified (principal); R50.9 Fever, unspecified; R00.0 Tachycardia, unspecified; Z20.822 Contact with and (suspected) exposure to COVID-19
CPT/HCPCS: 36415; 71045; 71260; 80053; 81001; 83605; 83690; 84145; 85025; 85610; 85730; 87040; 87077; 87086; 87186; 87633; 93005; 96361; 96365; 99284; J0696; Q9967

== ENCOUNTER → 2024-03-12 13:31 | Outpatient (CLI) | payer OTHER, SELFPAY ==
--- NOTE | 2024-03-12 13:35 | DI.RAD.S_ITS ---
PROCEDURE: XR LUMBAR SPINE MIN 4V INDICATIONS: BACK PAIN TECHNIQUE: 5 views of the lumbar spine were acquired, including bilateral oblique views. COMPARISON: [facility], , XR LUMBAR SPINE 2-3V, 05/29/2018, 13:42. FINDINGS: Bones: 5 nonrib-bearing vertebrae are present. Mild levoscoliosis with the apex at L2-3. Grade 1 retrolisthesis L1-2, L2-3, L3-4, and grade 1 anterolisthesis L4-5 and L5-S1, similar compared to prior. Multilevel mild disc height loss. Multilevel mild facet arthropathy.. No vertebral body compression fractures. No suspicious bony lesions. Soft tissues: Overlying bowel gas pattern is normal. No suspicious soft tissue calcifications. Brachytherapy seeds in the prostate gland region. Oblique images: No pars defects. IMPRESSION: Slight progression of levoscoliosis of the lumbar spine since the prior exam, probably due to asymmetric disc degeneration at L2-3. There is fairly stable AP alignment and no significant change in disc spacing. No acute fractures. Dictated by: Clarita Bermudez M.D. on 03/12/2024 at 15:50 Approved by: Clarita Bermudez M.D. on 03/12/2024 at 15:51
== END ==
LOC: RAD 13:32
PROVIDERS: Family Provider Physician Assistant; PCP Family Medicine; Referring Provider Physical Medicine & Rehabilitation; Visit Provider Physical Medicine & Rehabilitation
DX: M41.9 Scoliosis, unspecified (principal); M51.36 Other intervertebral disc degeneration, lumbar region; M47.816 Spondylosis without myelopathy or radiculopathy, lumbar region; M43.16 Spondylolisthesis, lumbar region; M54.9 Dorsalgia, unspecified
CPT/HCPCS: 72110

== ENCOUNTER → 2024-03-24 15:26 | Outpatient (CLI) | payer OTHER, SELFPAY ==
--- NOTE | 2024-03-24 15:27 | DI.MRI.S_ITS ---
PROCEDURE: MR LUMBAR SPINE WO CON INDICATIONS: Low back pain, symptoms of neurogenic claudication TECHNIQUE: Noncontrast sagittal T1 spin echo and T2 fast echo, sagittal STIR, and T2 fast spin echo through the lumbar spine. In cases with scoliosis, additional coronal T2 fast spin echo may be performed. COMPARISON: [facility], MR, MR LUMBAR SPINE WO CON, 07/11/2018, 14:16. FINDINGS: Image quality: Excellent. Alignment and Curvature: There is leftward curvature with apex at L2. Bone Marrow: Marrow is of normal overall signal. Diffuse increased T1 and T2 signal is present at L1, unchanged consistent with hemangioma. No acute vertebral body compression fractures. Spinal Cord: Conus medullaris terminates at the L1 level. Visualized cord demonstrates normal signal and size. Paraspinous Soft Tissues: No paravertebral masses. Discs: Multilevel [id number] disc desiccation. T12-L1: No disc bulge, spinal stenosis or foraminal narrowing. No interval change. L1-L2: No disc bulge, spinal stenosis or foraminal narrowing. No interval change. L2-L3: Minimal disc bulge without spinal stenosis or foraminal narrowing. No interval change. L3-L4: Mild disc bulge without spinal stenosis or foraminal narrowing. No interval change. L4-L5: Mild disc bulge with [id number] spinal stenosis, mildly progressive. Minimal bilateral foraminal narrowing with facet and ligamentum flavum hypertrophy, unchanged. L5-S1: Mild disc bulge without spinal stenosis. Mild bilateral foraminal narrowing, mildly progressive compared to prior exam. Facet and ligamentum flavum hypertrophy are present. IMPRESSION: Multilevel degenerative changes with mild areas of interval progression as above. Foraminal narrowing remains most prominent at L5-S1 secondary to facet/ligamentum flavum arthropathy. Dictated by: Padma Ken M.D. on 03/26/2024 at 9:51 Approved by: Padma Ken M.D. on 03/26/2024 at 10:11
== END ==
PROVIDERS: Family Provider Physician Assistant; PCP Family Medicine; Referring Provider Anesthesiology; Visit Provider Anesthesiology
DX: M47.817 Spondylosis without myelopathy or radiculopathy, lumbosacral region (principal); M47.816 Spondylosis without myelopathy or radiculopathy, lumbar region; M48.07 Spinal stenosis, lumbosacral region; M54.50 Low back pain, unspecified
CPT/HCPCS: 72148

== ENCOUNTER → 2024-06-20 15:02 | Outpatient (CLI) | payer OTHER, SELFPAY ==
--- NOTE | 2024-06-20 15:04 | DI.RAD.S_ITS ---
PROCEDURE: XR SHOULDER RT MIN 2V INDICATIONS: SHOULDER PAIN TECHNIQUE: Three views of the shoulder were acquired. COMPARISON: None. FINDINGS: Bones: There are no osseous abnormalities. Acromioclavicular and glenohumeral joints: Moderate acromioclavicular and mild glenohumeral degeneration appreciated. Soft tissues: A 5 mm calcification is seen in the location of the rotator cuff insertion compatible with calcific tendinitis. IMPRESSION: Degeneration Focal calcific tendinitis distal rotator cuff. Dictated by: Johan Funez M.D. on 06/21/2024 at 8:15 Approved by: Johan Funez M.D. on 06/21/2024 at 8:16
== END ==
LOC: RAD 15:03
PROVIDERS: Family Provider Physician Assistant; PCP Family Medicine; Referring Provider Family Medicine; Visit Provider Family Medicine
DX: M75.31 Calcific tendinitis of right shoulder (principal); M19.011 Primary osteoarthritis, right shoulder; M25.511 Pain in right shoulder; G89.29 Other chronic pain
CPT/HCPCS: 73030

== ENCOUNTER 2024-07-28 13:05 | Emergency (ER) | payer OTHER, SELFPAY ==
[2024-07-28] VITALS (17 sets, daily range): BP systolic 126–184; BP diastolic 61–91; PULSE 93–107; RESP 14–24; TEMP 37; O2SAT 96–99; BMI 42.6
--- NOTE | 2024-07-28 13:41 | ED_ITS ---
HPI - GI Bleed General Chief complaint: GI Bleed Stated complaint: rectal bleeding x3 days Time Seen by Provider: 07/28/24 13:18 History of Present Illness HPI Narrative: 74-year-old gentleman with a history of chronic back pain, diabetes, hypothyroidism, gout, peripheral neuropathy, hypothyroidism, reflux, hyperlipidemia who presents with 3 days of were low colored blood per rectum. notes significant volumes of blood loss over the past 2-3 days. Patient states he is weak. Only anticoagulation is a baby aspirin daily. Patient notes that symptoms initially started with a normal bowel movement with blood mixed in. Since then there is occasionally stool mixed in with the clots but it seems to be mostly clots that are coming out. He has not having free-flowing blood from his rectum. He has not complaining of any abdominal pain. No nausea or vomiting. He notes that he has been taking ibuprofen the last couple of days due to increased back pain. He describes no more than 4 [id number] ibuprofen per 24 hour. Also complains of right calf pain that started today. His family feels that his slightly pale overall presentation is his baseline. He is able to speak in full sentences. No chest pain, orthopnea, exertional dyspnea, palpitations, headaches. He has never had similar symptoms Related Data Home Medications Medication Instructions Recorded Confirmed aspirin 81 mg tablet,delayed 81 mg PO QDAY ##0 09/27/12 04/02/24 release glimepiride 4 mg tablet (Amaryl) 4 mg PO BIDCC ##0 09/27/12 04/02/24 metformin 500 mg tablet 1,500 mg PO ##0 09/27/12 04/02/24 (Glucophage) ramipril 10 mg capsule 10 mg PO BID ##0 09/27/12 04/02/24 ResMed AirSense 11 Auto 11/10/21 04/02/24 dorzolamide 22.3 mg-timolol 6.8 1 drp EYE-BOTH 03/13/24 04/02/24 mg/mL eye drops ferrous sulfate 325 mg (65 mg 325 mg PO DAILY 03/13/24 04/02/24 iron) tablet gabapentin 300 mg capsule 300 mg PO BID #0 caps 03/13/24 04/02/24 (Neurontin) gabapentin 600 mg tablet 600 mg PO TID 03/13/24 04/02/24 hydrocodone 10 mg-acetaminophen 1 tab PO Q4H PRN 03/13/24 04/02/24 325 mg tablet insulin NPH isoph U-100 human 100 50 unit SUBCUT BID 03/13/24 04/02/24 unit/mL subcutaneous suspension (Novolin N NPH U-100 Insulin isophane) insulin regular human 100 unit/mL 30 unit SUBCUT BID 03/13/24 04/02/24 injection solution (Novolin R Regular U-100 Insulin) latanoprost 0.005 % eye drops 1 drp EYE-BOTH 03/13/24 04/02/24 levothyroxine 137 mcg tablet 137 mcg PO DAILY 03/13/24 04/02/24 methocarbamol 500 mg tablet 1,000 mg PO BEDTIME 03/13/24 04/02/24 naloxone 4 mg/actuation nasal spray 4 mg intranasal Q3M PRN 03/13/24 04/02/24 omeprazole 40 mg capsule,delayed 40 mg PO DAILY 03/13/24 04/02/24 release simvastatin 20 mg tablet 20 mg PO DAILY 03/13/24 04/02/24 spironolactone 25 mg tablet mg PO 03/13/24 04/02/24 zolpidem 10 mg tablet (Ambien) 10 mg PO BEDTIME PRN #0 tabs 03/13/24 04/02/24 Allergies Allergy/AdvReac Type Severity Reaction Status Date / Time codeine [CODEINE] Allergy Severe Anaphylaxis Verified 04/02/24 08:12 Review of Systems Review of Systems Narrative: Pertinent positive and negative findings as per HPI Patient History Medical History Scoliosis Lumbar spondylosis Low back pain Morbid obesity with body mass index (BMI) of 40.0 to 49.9 Excessive daytime sleepiness Insomnia, persistent Obstructive sleep apnea of adult Snoring Social History Smoking Status: Never smoker Smoking Status: Never smoker alcohol intake frequency: other Substance Use Type: does not use Exam Initial Vital Signs Initial Vital Signs: Vital Signs Pulse Rate 104 H 07/28/24 13:13 Blood Pressure 172/72 H 07/28/24 13:13 Pulse Oximetry 96 07/28/24 13:13 General: Chronically ill-appearing, BMI of 43, in no acute distress. Able to give a complete and coherent history. HEENT: Moist mucous membranes, normal sclera with reactive pupils, Respiratory: Lungs are clear to auscultation, no wheezing no rales no rhonchi. Full and symmetrical air movement Cardiac: Regular rate and rhythm no murmurs no bruits Abdomen: Soft, obese, nontender, no rebound or guarding no flank pain Skin: Somewhat pale, family thinks he is at his baseline. No diaphoresis Neurologic: Grossly neurologically intact with no obvious asymmetries or abnormalities Extremities: No trauma, well perfused, right calf with tenderness on the medial aspect, full superficial vessel with concern for superficial thrombosis, deeper tenderness in the gastroc muscle. There is some mild swelling to the calf, the left calf has had skin grafting comparison for asymmetry and swelling is difficult Psych: Cooperative, appropriate insight and affect Course Orders Ordered: ED Orders 07/28/24 13:35 Complete Blood Count AUTO DIFF Stat Comprehensive Metabolic Panel Stat NT-proBNP (BNP-Adult 18+) Stat PT [Prothrombin Time INR] Stat PTT Partial Thromboplastin Ab Stat 07/28/24 13:52 US periph venous low extrem rt Stat 07/28/24 13:54 EKG-12 Lead Stat 07/28/24 14:00 Type and Screen Stat 07/28/24 16:58 Hemoglobin and Hematocrit Stat Discontinued Medications Sodium Chloride (Normal Saline 0.9%) 1,000 mls @ 1,000 mls/hr IV BOLUS ONE Stop: 07/28/24 14:52 Last Infusion: 07/28/24 15:03 Dose: Infused Documented By: Admin: 07/28/24 14:09 Dose: 1,000 mls/hr Documented By: CARMELA Vital Signs Vital signs: Vital Signs - 8 hr 07/28/24 13:13 07/28/24 13:13 07/28/24 13:17 Temperature 98.6 F Pulse Rate 104 H 105 H Respiratory Rate 20 Blood Pressure 172/72 H 172/72 H Pulse Oximetry 96 96 Oxygen Delivery Method Room Air 07/28/24 13:30 07/28/24 13:32 07/28/24 13:32 Temperature Pulse Rate 99 H 100 H Respiratory Rate 22 23 Blood Pressure 127/71 Pulse Oximetry 98 98 Oxygen Delivery Method 07/28/24 14:00 07/28/24 14:00 07/28/24 14:30 Temperature Pulse Rate 96 H 107 H Respiratory Rate 20 24 Blood Pressure 131/69 Pulse Oximetry 98 97 Oxygen Delivery Method 07/28/24 14:31 07/28/24 14:31 07/28/24 15:00 Temperature Pulse Rate 102 H 100 H Respiratory Rate 24 20 Blood Pressure 178/91 H Pulse Oximetry 96 96 Oxygen Delivery Method 07/28/24 15:03 07/28/24 15:21 07/28/24 15:21 Temperature Pulse Rate 102 H Respiratory Rate 22 Blood Pressure 184/86 H 159/72 H Pulse Oximetry 99 Oxygen Delivery Method 07/28/24 15:30 07/28/24 15:31 07/28/24 16:00 Temperature Pulse Rate 98 H 97 H Respiratory Rate 18 21 Blood Pressure 135/61 Pulse Oximetry 99 97 Oxygen Delivery Method 07/28/24 16:01 07/28/24 16:01 Temperature Pulse Rate 97 H Respiratory Rate 23 Blood Pressure 128/61 Pulse Oximetry 96 Oxygen Delivery Method MDM - GI Bleed Lab Data 07/28/24 16:58 07/28/24 13:35 Labs: Lab Results 07/28/24 07/28/24 07/28/24 Range/Units 13:35 14:00 16:58 WBC 14.5 H (4.5-11.0) X10^3/uL RBC 3.62 L (4.5-5.9) X10^6/uL Hgb 10.8 L 9.6 L (13.5-17.5) g/dL Hct 32.8 L 28.8 L (41-53) % MCV 90.5 (80-100) fL MCH 29.9 (26-34) PG MCHC 33.0 (30-36) % RDW 14.1 (11.6-14.8) % Plt Count 249 (150-400) X10^3/uL Neut % (Auto) 59.9 (50-75) % Lymph % (Auto) 26.9 (25-40) % [place] % (Auto) 5.4 (3-14) % Eos % (Auto) 6.6 H (2-4) % Baso % (Auto) 1.2 (0-2) % Neut # (Auto) 8700 H (7267-5535) /uL Lymph # (Auto) 3900 (5755-3617) /uL [place] # (Auto) 800 (0-900) /uL Eos # (Auto) 1000 H (0-450) /uL Baso # (Auto) 200 H (0-100) /uL PT 12.8 H (9.4-12.5) SECONDS INR 1.1 (0.9-1.3) APTT 34 (25.1-36.5) SECONDS Sodium 135 L (137-145) mmol/L Potassium 4.7 (3.4-5.1) mmol/L Chloride 102 (98-107) mmol/L Carbon Dioxide 23 (22-32) mmol/L BUN 20 (9-20) mg/dL Creatinine 0.81 (0.66-1.25) mg/dL Estimated GFR > 60 (>60) mL/min BUN/Creatinine Ratio 24.7 H (6-22) Glucose 105 (80-110) mg/dL Calcium 9.9 (8.4-10.2) mg/dL Total Bilirubin 0.5 (0.2-1.3) mg/dL AST 33 (17-59) IU/L ALT 24 (<50) IU/L Alkaline Phosphatase 52 (38-126) U/L NT-Pro-B Natriuret Pep 55 (<125) pg/mL Total Protein 7.4 (6.3-8.2) g/dL Albumin 4.6 (3.5-5.0) g/dL Globulin 2.8 (1.7-4.1) g/dL Albumin/Globulin Ratio 1.6 (1.0-2.8) Blood Type A Positive Antibody Screen Negative [facility] Narrative Medical decision making narrative: CC: Painless rectal bleeding Complicating co-morbidities: BMI of 43, diabetes, peripheral neuropathy, coronary artery disease on a baby aspirin not otherwise anticoagulated, chronic back pain, hypothyroidism gastric reflux, hyperlipidemia Data collected from: patient, , son Medical records reviewed: Medical records reviewed majority available refer to chronic back pain and pain management Differential considered: Upper GI bleed, hemorrhoidal bleeding, diverticular bleeding Exam documented above, pertinent findings include: 74-year-old gentleman in no acute distress. No significant abdominal tenderness. Slightly pale but family feels that he is at his baseline. Hemodynamically stable, minimally tachycardic Lab Test results independently reviewed as above. Pertinent findings: CBC shows mild leukocytosis at 14.5 without left shift. Initial H&H is slightly lower than his baseline at 10.8 and 32.8. After a L of fluid repeat H&H shows 9.6 and 28.8 Chemistries are reassuring, normal renal function, no liver abnormality Independently reviewed EKG: EKG had a rate of 92. Sinus rhythm with PACs. Right bundle branch block. No acute ischemic changes Imaging studies independently reviewed: Vascular ultrasound of the right lower extremity was done. He does not have a superficial thrombosis nor a DVT Consultations: Brief discussion with Dr. Melgar, general surgery Treatments: 1 L of fluid Re-evaluations: Patient has not had any additional bloody bowel movements while in the emergency department Discussion: 74-year-old gentleman with painless darker clots per rectum for the last 12 hours with a slight decrease in his H&H. No upper abdominal tenderness. No vomiting. I suspect that this is a diverticular bleed. I suspect that it is currently self-limited. Long discussion with the patient and his family regarding options. After discussion with Dr. Ambriz he was very clear that simple observation would be the only intervention in the hospital unless patient became worse or hemodynamically unstable, with shared decision-making the patient would much prefer to go home. He has his and son who were available, they live in [place] and have reliable transportation back to the hospital should he get worse. We talked about increased heart rate, chest pain shortness for breath as ?getting worse, and reasons to return to the hospital. Reassured him that if he is having more bleeding or developing any hemodynamically unstable symptoms he does need to return to the emergency department and we will take good care of him. Questions are answered he is safe for discharge Discharge Plan Departure Patient Disposition: Home Clinical Impression: Diverticular hemorrhage, Acute anemia, Right calf pain Activity Restrictions/Additional Instructions: Thank you for coming in today I think you have had a diverticular bleed. This is went a blood vessel close to a diverticula, in your colon, breaks open. The vast majority of times your body heals itself and there is no intervention required. You have definitely lost some blood but you are not symptomatic with this, you do not need to be in the hospital and you do not need a blood transfusion this evening. I do believe it is safe to go home and if you find that you are having more bleeding, chest pain, your short of breath, your dizzy standing up or you develop new symptoms you do need to return to the emergency department and we need to further evaluate. Regarding the pain in your right calf, there was no evidence of superficial or deep blood clot. No sign of infection. I am not sure how to explain the pain that you are experiencing but it is not a life-threatening diagnosis at this time. Please do follow up with your primary care physician and, again any new symptoms, do return to the ER Prescriptions: No Action aspirin 81 MG tablet,delayed release (DR/EC) 81 mg PO QDAY Qty: 0 glimepiride [Amaryl] 4 MG tablet 4 mg PO BIDCC Qty: 0 metformin [Glucophage] 500 MG tablet 1,500 mg PO Qty: 0 ramipril 10 MG capsule 10 mg PO BID Qty: 0 gabapentin [Neurontin] 300 mg capsule 300 mg PO BID Qty: 0 zolpidem [Ambien] 10 mg tablet 10 mg PO BEDTIME PRNQty: 0 dorzolamide-timolol 22.3-6.8 mg/mL drops 1 drp EYE-BOTH ferrous sulfate 325 mg (65 mg iron) tablet 325 mg PO DAILY gabapentin 600 mg tablet 600 mg PO TID hydrocodone-acetaminophen 10-325 mg tablet 1 tab PO Q4H PRN Novolin R Regular U100 Insulin 100 unit/mL solution 30 unit SUBCUT BID Patient Comments: [NO ORIGINAL SIG] Novolin N NPH U-100 Insulin 100 unit/mL suspension 50 unit SUBCUT BID Patient Comments: [NO ORIGINAL SIG] latanoprost 0.005 % drops 1 drp EYE-BOTH levothyroxine 137 mcg tablet 137 mcg PO DAILY methocarbamol 500 mg tablet 1,000 mg PO BEDTIME naloxone 4 mg/actuation spray,non-aerosol 4 mg intranasal Q3M PRN Rx Instructions: spray 1 dose into ONE nostril; alternate nostrils w each dose until help arrives simvastatin 20 mg tablet 20 mg PO DAILY spironolactone 25 mg tablet PO omeprazole 40 mg capsule,delayed release(DR/EC) 40 mg PO DAILY (DME) ResMed AirSense 11 Auto See Rx Instructions .Route .MEDSUPPLY Rx Instructions: CPAP Min: 8 Max: 16 DME: PHM Referrals: Blaze Gilmore MD [Primary Care Provider] - Stand Alone Forms: Patient Portal/API
--- NOTE | 2024-07-28 13:52 | DI.US.S_ITS ---
PROCEDURE: US PERIPH VENOUS LOW EXTREM RT INDICATIONS: calf pain TECHNIQUE: Real-time imaging, as well as color and pulse Doppler interrogation, were performed of the lower extremity deep veins from the inguinal ligament to the popliteal fossa, with documentation of the visualized calf veins. COMPARISON: None. FINDINGS: The common femoral, femoral, popliteal, and the visualized calf veins are normally compressible, and free of intraluminal thrombus. Color and pulse Doppler demonstrate normal phasic intraluminal flow. There is normal augmentation response to distal compression maneuver. IMPRESSION: No findings of lower extremity deep venous thrombosis. Dictated by: Neftali Domínguez M.D. on 07/28/2024 at 15:20 Approved by: Neftali Domínguez M.D. on 07/28/2024 at 15:21
[2024-07-28 14:00] LABS: Add Manual Diff / Slide Review NO; Basophils Absolute Auto 200 /uL (0-100); Basophils Percent Auto 1.2 % (0-2); Eosinophils Absolute Auto 1000 /uL (0-450); Eosinophils Percent Auto 6.6 % (2-4); Hematocrit 32.8 % (41-53); Hemoglobin 10.8 g/dL (13.5-17.5); Lymphocytes Absolute Auto 3900 /uL (1100-4500); Lymphocytes Percent Auto 26.9 % (25-40); Mean Corpuscular Hemoglobin 29.9 PG (26-34); Mean Corpuscular Volume 90.5 fL (80-100); Monocytes Absolute Auto 800 /uL (0-900); Monocytes Percent Auto 5.4 % (3-14); Neutrophils Absolute Auto 8700 /uL (1500-7000); Neutrophils Percent Auto 59.9 % (50-75); Platelet Count 249 X10^3/uL (150-400); Red Blood Cell Count 3.62 X10^6/uL (4.5-5.9); Red Cell Distribution Width 14.1 % (11.6-14.8); White Blood Cell Count 14.5 X10^3/uL (4.5-11.0)
[2024-07-28 14:02] LABS: INR 1.1 (0.9-1.3); Prothrombin Time 12.8 SECONDS (9.4-12.5)
[2024-07-28 14:05] LABS: PTT Partial Thromboplastin Tim 34 SECONDS (25.1-36.5)
[2024-07-28 14:07] LABS: Alanine Aminotransferase 24 IU/L (<50); Albumin 4.6 g/dL (3.5-5.0); Albumin Globulin Ratio 1.6 (1.0-2.8); Alkaline Phosphatase 52 U/L (38-126); Aspartate Aminotransferase 33 IU/L (17-59); BUN Creatinine Ratio 24.7 (6-22); Bilirubin Total 0.5 mg/dL (0.2-1.3); Blood Urea Nitrogen 20 mg/dL (9-20); Calcium 9.9 mg/dL (8.4-10.2); Carbon Dioxide 23 mmol/L (22-32); Chloride 102 mmol/L (98-107); Estimated Glomerular Filt Rate > 60 mL/min (>60); Globulin 2.8 g/dL (1.7-4.1); Glucose 105 mg/dL (80-110); HEMOLYSIS < 15 (0-50); Potassium 4.7 mmol/L (3.4-5.1); Sodium 135 mmol/L (137-145); Total Protein 7.4 g/dL (6.3-8.2)
[2024-07-28] MEDS: SODIUM CHLORIDE 0.9% 1,000 ML 1000 ML IV (14:09)
[2024-07-28 14:15] LABS: NT-proBNP (BNP-Adult 18+) 55 pg/mL (<125)
--- NOTE | 2024-07-28 14:18 | EKG_ITS ---
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
[2024-07-28 17:03] LABS: Hematocrit 28.8 % (41-53); Hemoglobin 9.6 g/dL (13.5-17.5)
== END 2024-07-28 18:00 | disposition home or self-care (01) ==
PROVIDERS: Emergency Provider Emergency Medicine; Family Provider Physician Assistant; PCP Family Medicine
DX: K57.31 Diverticulosis of large intestine without perforation or abscess with bleeding (principal); D64.9 Anemia, unspecified; M79.661 Pain in right lower leg; I45.10 Unspecified right bundle-branch block; Z79.899 Other long term (current) drug therapy
CPT/HCPCS: 36415; 80053; 83880; 85014; 85018; 85025; 85610; 85730; 86850; 86900; 86901; 93005; 93971; 96360; 99284

== ENCOUNTER 2025-05-05 01:23 | Emergency (ER) | payer MEDICARE, SELFPAY ==
[2025-05-05 01:55] VITALS: BP 138/65; PULSE 96; RESP 20; TEMP 37.6; O2SAT 96; BMI 42.4
--- NOTE | 2025-05-05 02:19 | ED.EXTPRO ---
HPI - Extremity Problem General Chief complaint: Extremity Problem,Nontraumatic Stated complaint: Shooting pain in both feet and rt hand Time Seen by Provider: 05/05/25 01:57 Source: patient Mode of arrival: Wheelchair History of Present Illness HPI Narrative: 74-year-old male with history of morbid obesity, diabetes, chronic back pain, ongoing low back pain with longstanding numbness to both feet, more recently also having shooting pains to both hands, awaiting spinal imaging next week. No incontinence of urine or stool. No surgical procedures to neck or back recalled or planned. No fevers or chills. No known primary cancers. No known IV drug use. No fevers or chills. No incontinence of urine or stool. Taking methocarbamol muscle relaxant from clinic. Takes gabapentin. Believes that NSAIDs bother his stomach. Related Data Home Medications ?Medication ?Instructions ?Recorded ?Confirmed aspirin 81 mg tablet,delayed 81 mg PO QDAY ##0 09/27/12 04/02/24 release glimepiride 4 mg tablet (Amaryl) 4 mg PO BIDCC ##0 09/27/12 04/02/24 metformin 500 mg tablet 1,500 mg PO ##0 09/27/12 04/02/24 (Glucophage) ramipril 10 mg capsule 10 mg PO BID ##0 09/27/12 04/02/24 ResMed AirSense 11 Auto 11/10/21 04/02/24 dorzolamide 22.3 mg-timolol 6.8 1 drp EYE-BOTH 03/13/24 04/02/24 mg/mL eye drops ferrous sulfate 325 mg (65 mg 325 mg PO DAILY 03/13/24 04/02/24 iron) tablet gabapentin 300 mg capsule 300 mg PO BID #0 caps 03/13/24 04/02/24 (Neurontin) gabapentin 600 mg tablet 600 mg PO TID 03/13/24 04/02/24 hydrocodone 10 mg-acetaminophen 1 tab PO Q4H PRN 03/13/24 04/02/24 325 mg tablet insulin NPH isoph U-100 human 100 50 unit SUBCUT BID 03/13/24 04/02/24 unit/mL subcutaneous suspension (Novolin N NPH U-100 Insulin isophane) insulin regular human 100 unit/mL 30 unit SUBCUT BID 03/13/24 04/02/24 injection solution (Novolin R Regular U-100 Insulin) latanoprost 0.005 % eye drops 1 drp EYE-BOTH 03/13/24 04/02/24 levothyroxine 137 mcg tablet 137 mcg PO DAILY 03/13/24 04/02/24 methocarbamol 500 mg tablet 1,000 mg PO BEDTIME 03/13/24 04/02/24 naloxone 4 mg/actuation nasal spray 4 mg intranasal Q3M PRN 03/13/24 04/02/24 omeprazole 40 mg capsule,delayed 40 mg PO DAILY 03/13/24 04/02/24 release simvastatin 20 mg tablet 20 mg PO DAILY 03/13/24 04/02/24 spironolactone 25 mg tablet mg PO 03/13/24 04/02/24 zolpidem 10 mg tablet (Ambien) 10 mg PO BEDTIME PRN #0 tabs 03/13/24 04/02/24 Allergies Allergy/AdvReac Type Severity Reaction Status Date / Time codeine (CODEINE) Allergy Severe Anaphylaxis Verified 05/05/25 01:56 Patient History Medical History Scoliosis Lumbar spondylosis Low back pain Morbid obesity with body mass index (BMI) of 40.0 to 49.9 Excessive daytime sleepiness Insomnia, persistent Obstructive sleep apnea of adult Snoring Social History Smoking Status: Former smoker Smoking Status: Former smoker alcohol intake frequency: other Exam Narrative Exam Narrative: GENERAL: Well-developed patient, in mild distress. HEAD: Atraumatic. Normocephalic. EYES: Pupils equal round and reactive. Extraocular motions intact. No scleral icterus. No injection or drainage. ENT: Nose without bleeding, purulent drainage. Throat without erythema, tonsillar hypertrophy or exudate. Airway patent. NECK: Trachea midline. Non tender CARDIOVASCULAR: Regular rate and rhythm without murmurs, gallops, or rubs. RESPIRATORY: Clear to auscultation. Breath sounds equal bilaterally. No wheezes, rales, or rhonchi. GASTROINTESTINAL: Abdomen soft, non-tender, nondistended. EXTREMITIES: No edema or joint tenderness. BACK: Nontender without deformity or crepitance. No flank tenderness. No midline scars. No midline tenderness or paraspinal muscle spasm obvious. NEURO: AOx3. Motor functions grossly nonfocal. SKIN: No rash or erythema of visible areas Initial Vital Signs Initial Vital Signs: Vital Signs Temperature 99.6 F 05/05/25 01:55 Pulse Rate 96 H 05/05/25 01:55 Respiratory Rate 20 05/05/25 01:55 Blood Pressure 138/65 05/05/25 01:55 Pulse Oximetry 96 05/05/25 01:55 Oxygen Delivery Method Room Air 05/05/25 01:55 Course Orders Ordered: ED Orders 05/05/25 02:26 CT cervical spine wo con Stat CT lumbar spine wo con Stat Discontinued Medications Morphine Sulfate (Morphine 4 Mg/Ml Inj) 4 mg IM NOW ONE Stop: 05/05/25 02:27 Last Admin: 05/05/25 02:53 Dose: 4 mg Documented By: SHAW Vital Signs Vital signs: Vital Signs - 8 hr 05/05/25 01:55 05/05/25 03:27 05/05/25 03:30 Temperature 99.6 F Pulse Rate 96 H 84 83 Respiratory Rate 20 Blood Pressure 138/65 138/65 Pulse Oximetry 96 94 93 Oxygen Delivery Method Room Air Room Air MDM - Extremity (Nontraumatic) MDM Narrative Medical decision making narrative: 74-year-old male with history of morbid obesity, chronic low back pain, now having tingling to bilateral hands. Requests imaging, at this hour we can do CT scanning but no MRI study. CT cervical spine and CT lumbar spine studies ordered. Patient is already taking muscle relaxant, believes that he can not take NSAIDs. IM morphine. CT cervical spine. Impressions: ?Multilevel spondylotic changes of the cervical spine without acute traumatic injury. ? See tele radiology report. CT lumbar spine. Impressions: ?Spondylotic changes of the lumbar spine without acute traumatic injury. ? See tele radiology report. Patient feels better after IM morphine dose. Has muscle relaxant and gabapentin and chronic opiate medications. Discharged home with family. Follow up with PCP, to consider further workup as an outpatient. Return precautions discussed. Discharge Plan Departure Patient Disposition: Home Clinical Impression: Back pain, Neck pain, Numbness and tingling in both hands, Numbness and tingling of both feet Activity Restrictions/Additional Instructions: Chronic back pain, history of morbid obesity noted, no back interventions or injections or surgeries known. Chronic numbness of both feet noted. More recently having tingling of both hands, of unclear etiology. No focal weakness. No injury trauma or new activities known. No fever on triage. Back pain improved after injection of morphine analgesic medication. MRI of the spinous not available at this hour. CT scan of the lumbar spine and CT scan of the cervical spine showed arthritic changes, no obvious spinal lesions or fractures however. Continue taking your chronic pain medications, and your gabapentin, and your muscle relaxant medications. Follow up with your regular doctor on Tuesday for further follow up planning. Return to this/nearest emergency department for any change worsening symptoms or any concerns prior. Prescriptions: No Action aspirin 81 MG tablet,delayed release (DR/EC) 81 mg PO QDAY Qty: 0 glimepiride [Amaryl] 4 MG tablet 4 mg PO BIDCC Qty: 0 metformin [Glucophage] 500 MG tablet 1,500 mg PO Qty: 0 ramipril 10 MG capsule 10 mg PO BID Qty: 0 gabapentin [Neurontin] 300 mg capsule 300 mg PO BID Qty: 0 zolpidem [Ambien] 10 mg tablet 10 mg PO BEDTIME PRNQty: 0 dorzolamide-timolol 22.3-6.8 mg/mL drops 1 drp EYE-BOTH ferrous sulfate 325 mg (65 mg iron) tablet 325 mg PO DAILY gabapentin 600 mg tablet 600 mg PO TID hydrocodone-acetaminophen 10-325 mg tablet 1 tab PO Q4H PRN Novolin R Regular U100 Insulin 100 unit/mL solution 30 unit SUBCUT BID Patient Comments: [NO ORIGINAL SIG] Novolin N NPH U-100 Insulin 100 unit/mL suspension 50 unit SUBCUT BID Patient Comments: [NO ORIGINAL SIG] latanoprost 0.005 % drops 1 drp EYE-BOTH levothyroxine 137 mcg tablet 137 mcg PO DAILY methocarbamol 500 mg tablet 1,000 mg PO BEDTIME naloxone 4 mg/actuation spray,non-aerosol 4 mg intranasal Q3M PRN Rx Instructions: spray 1 dose into ONE nostril; alternate nostrils w each dose until help arrives simvastatin 20 mg tablet 20 mg PO DAILY spironolactone 25 mg tablet PO omeprazole 40 mg capsule,delayed release(DR/EC) 40 mg PO DAILY (DME) ResMed AirSense 11 Auto See Rx Instructions .Route .MEDSUPPLY Rx Instructions: CPAP Min: 8 Max: 16 DME: PHM Referrals: Blaze Gilmore MD [Primary Care Provider, Family Practice] Stand Alone Forms: Patient Portal/API
--- NOTE | 2025-05-05 02:26 | DI.CT.S_ITS ---
PROCEDURE: CT CERVICAL SPINE WO CON INDICATIONS: arm pains TECHNIQUE: Noncontrast 3 mm thick sections acquired from the skull base to the T4 level. Sagittal and coronal reformats were then constructed. For radiation dose reduction, the following was used: automated exposure control, adjustment of mA and/or kV according to patient size. COMPARISON: [facility], CT, CT LUMBAR SPINE WO CON, 05/05/2025, 2:41. FINDINGS: Image quality: Diagnostic, with note made of motion artifact. This examination is somewhat limited by quantum mottle artifact. Bones: No fractures or dislocations. Visualized superior ribs are intact. Focal degenerative change is seen involving the C1-C2 interface anteriorly. Mild disc space narrowing can be seen at at C4-C5 and C5-C6. Soft tissues: Prevertebral soft tissues are normal in thickness. No paravertebral hematomas. No apical pneumothoraces. Atherosclerotic calcification is noted. IMPRESSION: No imaging explanation is found for this patient's presenting symptoms. Underlying degenerative changes are seen. Note: No significant discrepancy from the preliminary report. Dictated by: Luis Wick M.D. on 05/05/2025 at 8:32 Approved by: Luis Wick M.D. on 05/05/2025 at 8:33
--- NOTE | 2025-05-05 02:26 | DI.CT.S_ITS ---
PROCEDURE: CT LUMBAR SPINE WO CON INDICATIONS: leg pains/numb TECHNIQUE: Noncontrast 3 mm thick sections acquired from the T12 level to the sacrum. Sagittal and coronal reformats were constructed. For radiation dose reduction, the following was used: automated exposure control. COMPARISON: [facility], MR, MR LUMBAR SPINE WO CON, 07/11/2018, 14:16. [facility], MR, MR LUMBAR SPINE WO CON, 03/24/2024, 16:13. [facility], CR, XR LUMBAR SPINE MIN 4V, 03/12/2024, 13:51. [facility], CT, CT CERVICAL SPINE WO CON, 05/05/2025, 2:41. FINDINGS: Image quality: Excellent. Bones: No acute vertebral body compression fractures. No suspicious lytic or blastic bony lesions. An L1 vertebral body hemangioma can be seen. Mild levoconvex scoliotic curvature is noted. Minimal anterolisthesis is seen at L5-S1, yet without associated pars defects. Multilevel degenerative changes are seen, which are worst inferiorly. These degenerative changes appear similar to the 2023 MRI. Soft tissues: No retroperitoneal masses or hematomas. Visualized aorta is normal in caliber. Atherosclerotic calcification is noted. IMPRESSION: No acute abnormality is seen to explain the patient's presenting history. Multilevel degenerative changes are seen, which are similar to 2024. If it would be helpful for clinical management decision making this patient with this given history, please consider a dedicated, scheduled lumbar spine MRI for further evaluation (assuming that there is no contraindication). Note: No significant discrepancy from the preliminary report. Dictated by: Luis Wick M.D. on 05/05/2025 at 8:28 Approved by: Luis Wick M.D. on 05/05/2025 at 8:31
[2025-05-05] MEDS: MORPHINE 4 MG/ML INJ IM (02:53)
[2025-05-05 03:27] VITALS: PULSE 84; O2SAT 94
[2025-05-05 03:30] VITALS: BP 138/65; PULSE 83; O2SAT 93
== END 2025-05-05 04:00 | disposition home or self-care (01) ==
PROVIDERS: Emergency Provider Emergency Medicine; Family Provider Physician Assistant; PCP Family Medicine
DX: M79.641 Pain in right hand (principal); R20.0 Anesthesia of skin
CPT/HCPCS: 72125; 72131; 96372; 99283; 99284; J2270

== ENCOUNTER 2025-05-06 16:36 | Emergency (ER) | payer MEDICARE, SELFPAY ==
[2025-05-06 16:57] VITALS: BP 152/68; PULSE 94; RESP 22; TEMP 37.6; O2SAT 93; BMI 43.7
[2025-05-06] MEDS: MORPHINE 4 MG/ML INJ IM (17:42)
--- NOTE | 2025-05-06 17:44 | ED_ITS ---
<Statement entered by Johan Ward, DO - 05/06/25 18:22> Co-sign statement: I was available for consultation during this patient's emergency department visit. This chart is being signed by myself for administrative purposes only. I do not have direct contact with this patient during this visit. They were seen independently by the APC. HPI - Extremity Problem General Chief complaint: Extremity Problem,Nontraumatic Stated complaint: Shooting pain in joints of hands and feet Time Seen by Provider: 05/06/25 16:50 Source: patient Mode of arrival: EMS History of Present Illness HPI Narrative: 74-year-old male with past medical history diabetes, chronic back pain, morbid obesity, longstanding numbness to both feet, has recently been experiencing shooting pains to both hands. Patient was seen in the ED yesterday for the same complaint, spinal CTs obtained which showed spondylitic changes but no acute findings. Patient was given a dose of IM morphine with good relief and discharged home. Patient also takes a muscle relaxant, gabapentin and chronic opiate medications. Patient is back in the ED today, states that his hand pain is back and that the morphine wore off. Patient is continuing to take all his other pain medications with no relief. Patient does have a PCP appointment in 5 days. No new trauma or injuries. Related Data Home Medications ?Medication ?Instructions ?Recorded ?Confirmed aspirin 81 mg tablet,delayed 81 mg PO QDAY ##0 2 04/02/24 release glimepiride 4 mg tablet (Amaryl) 4 mg PO BIDCC ##0 27/0904/02/24 metformin 500 mg tablet 1,500 mg PO ##0 09/27/1210/26 (Glucophage) ramipril 10 mg capsule 10 mg PO BID ##0 09/27/12 ResMed AirSense 11 Auto 11/10/21 04/02/24 dorzolamide 22.3 mg-timolol 6.8 1 drp EYE-BOTH 4 04/02/24 mg/mL eye drops ferrous sulfate 325 mg (65 mg 325 mg PO DAILY 03/13/24 04/02/24 iron) tablet gabapentin 300 mg capsule 300 mg PO BID #0 caps 04/02/24 (Neurontin) gabapentin 600 mg tablet 600 mg PO TID 03/13/2404/02 hydrocodone 10 mg-acetaminophen 1 tab PO Q4H PRN 03/1304/02/24 325 mg tablet insulin NPH isoph U-100 human 100 50 unit SUBCUT BID 0 03/13/24 04/02/24 unit/mL subcutaneous suspension (Novolin N NPH U-100 Insulin isophane) insulin regular human 100 unit/mL 30 unit SUBCUT BID 0 03/13/24 04/02/24 injection solution (Novolin R Regular U-100 Insulin) latanoprost 0.005 % eye drops 1 drp EYE-BOTH 03/13/24 04/02/24 levothyroxine 137 mcg tablet 137 mcg PO DAILY 03/13/24 04/02/24 methocarbamol 500 mg tablet 1,000 mg PO BEDTIME 04/02/24 naloxone 4 mg/actuation nasal spray 4 mg intranasal Q3 M PRN 03/13/24 04/02/24 omeprazole 40 mg capsule,delayed 40 mg PO DAILY 04/02/24 release simvastatin 20 mg tablet 20 mg PO DAILY 03/13/2410/26 spironolactone 25 mg tablet mg PO 03/13/24 04/02/24 zolpidem 10 mg tablet (Ambien) 10 mg PO BEDTIME PRN #0 tabs 03/13/24 04/02/24 Allergies Allergy/AdvReac Type Severity Reaction Status Date / Time codeine (CODEINE) Allergy Severe Anaphylaxis Verified 05/06/25 17:01 Review of Systems Constitutional Constitutional: Denies chills, Denies fatigue, Denies fever(s), Denies frequent falls, Denies lethargy and Denies weakness Eyes Eyes: Denies change in vision, Denies eye discharge, Denies irritation and Denies loss of vision ENT Ears, Nose, Mouth, and Throat: Denies change in voice, Denies dizziness, Denies neck pain, Denies sore throat and Denies throat swelling Cardiovascular Cardiovascular: Denies chest pain, Denies irregular heart rhythm, Denies lightheadedness, Denies palpitations, Denies dyspnea, Denies dyspnea on exertion and Denies orthopnea Respiratory Respiratory: Denies cough, Denies dyspnea, Denies dyspnea on exertion and Denies wheezing Gastrointestinal Gastrointestinal: Denies abdominal pain, Denies change in bowel habits, Denies diarrhea, Denies nausea and Denies vomiting Musculoskeletal Musculoskeletal: Denies neck pain and Denies numbness Comments: Shooting hand pain Integumentary/Breasts Skin/Breast: Denies pruritus, Denies erythema, Denies rash and Denies wounds Neurologic Neurologic: Denies behavioral changes, Denies confusion, Denies dizziness, Denies frequent falls, Denies loss of vision, Denies numbness and Denies weakness Psychiatric Psychiatric: Denies anxiety, Denies behavioral changes, Denies confusion, Denies depression, Denies homicidal ideation and Denies suicidal ideation Endocrine Endocrine: Denies fatigue, Denies flushing and Denies palpitations Hematologic/Lymphatic Hematologic/Lymphatic: Denies easy bruising Allergic/Immunologic Allergic/Immunologic: Denies urticaria, Denies throat swelling and Denies wheezing Patient History Medical History Scoliosis Lumbar spondylosis Low back pain Morbid obesity with body mass index (BMI) of 40.0 to 49.9 Excessive daytime sleepiness Insomnia, persistent Obstructive sleep apnea of adult Snoring alcohol intake frequency: other Exam Narrative Exam Narrative: General:?cooperative, healthy appearing and comfortable [facility] Head:?normal to inspection Ears:?hearing grossly normal bilaterally Nose:?external nose normal Face and sinus:?normal facial exam and sinuses nontender Mouth:?oral mucosae normal Throat:?posterior oropharynx normal Eyes General:?appearance normal, both eyes and all related structures Neck Neck:?normal visual inspection and no lymphadenopathy noted Resp Effort & Inspection:?normal respiratory effort Auscultation:?clear to auscultation bilaterally Cardio Rate:?regular rate Rhythm:?regular rhythm Musculoskeletal No edema or joint tenderness of the hands. No erythema. Neurovascularly intact. Neuro General:?patient alert, patient awake and patient oriented x3 Initial Vital Signs Initial Vital Signs: Vital Signs Temperature 99.7 F H 05/06/25 16:57 Pulse Rate 94 H 05/06/25 16:57 Respiratory Rate 22 05/06/25 16:57 Blood Pressure 152/68 H 05/06/25 16:57 Pulse Oximetry 93 05/06/25 16:57 Oxygen Delivery Method Room Air 05/06/25 16:57 Course Orders Ordered: Discontinued Medications Morphine Sulfate (Morphine 4 Mg/Ml Inj) 4 mg IM NOW ONE Stop: 05/06/25 17:18 Last Admin: 05/06/25 17:42 Dose: 4 mg Documented By: BAKARI Vital Signs Vital signs: Vital Signs - 8 hr 05/06/25 16:57 Temperature 99.7 F H Pulse Rate 94 H Respiratory Rate 22 Blood Pressure 152/68 H Pulse Oximetry 93 Oxygen Delivery Method Room Air MDM - Extremity (Nontraumatic) MDM Narrative Medical decision making narrative: 74-year-old male with past medical history diabetes, chronic back pain, morbid obesity, longstanding numbness to both feet, has recently been experiencing shooting pains to both hands. No new trauma or injuries. Counseled patient to see his PCP sooner for further evaluation and a long-term pain control strategy. Patient given another dose of morphine today in the ED for short-term pain control. Patient is already maxed out on opioid medications. ED return precautions were discussed with patient. Patient verbalized understanding. Medical records reviewed: Yes Discharge Plan Departure Patient Disposition: Home Clinical Impression: Hand pain Qualifiers: Laterality: bilateral Qualified Code(s): M79.641 - Pain in right hand Instructions: DI for Hand Pain Activity Restrictions/Additional Instructions: You were evaluated in the emergency department today for hand pain. You were given an injection of morphine for pain control. It is recommended that you follow-up with your PCP as soon as possible for further evaluation and a long- term pain control strategy. Return to the ED if you have chest pain, shortness of breath. Prescriptions: No Action aspirin 81 MG tablet,delayed release (DR/EC) 81 mg PO QDAY Qty: 0 glimepiride [Amaryl] 4 MG tablet 4 mg PO BIDCC Qty: 0 metformin [Glucophage] 500 MG tablet 1,500 mg PO Qty: 0 ramipril 10 MG capsule 10 mg PO BID Qty: 0 gabapentin [Neurontin] 300 mg capsule 300 mg PO BID Qty: 0 zolpidem [Ambien] 10 mg tablet 10 mg PO BEDTIME PRNQty: 0 dorzolamide-timolol 22.3-6.8 mg/mL drops 1 drp EYE-BOTH ferrous sulfate 325 mg (65 mg iron) tablet 325 mg PO DAILY gabapentin 600 mg tablet 600 mg PO TID hydrocodone-acetaminophen 10-325 mg tablet 1 tab PO Q4H PRN Novolin R Regular U100 Insulin 100 unit/mL solution 30 unit SUBCUT BID Patient Comments: [NO ORIGINAL SIG] Novolin N NPH U-100 Insulin 100 unit/mL suspension 50 unit SUBCUT BID Patient Comments: [NO ORIGINAL SIG] latanoprost 0.005 % drops 1 drp EYE-BOTH levothyroxine 137 mcg tablet 137 mcg PO DAILY methocarbamol 500 mg tablet 1,000 mg PO BEDTIME naloxone 4 mg/actuation spray,non-aerosol 4 mg intranasal Q3M PRN Rx Instructions: spray 1 dose into ONE nostril; alternate nostrils w each dose until help arrives simvastatin 20 mg tablet 20 mg PO DAILY spironolactone 25 mg tablet PO omeprazole 40 mg capsule,delayed release(DR/EC) 40 mg PO DAILY (DME) ResMed AirSense 11 Auto See Rx Instructions .Route .MEDSUPPLY Rx Instructions: CPAP Min: 8 Max: 16 DME: PHM Referrals: Blaze Gilmore MD [Primary Care Provider, Family Practice] Stand Alone Forms: Patient Portal/API
[2025-05-06 17:52] VITALS: BP 161/71; PULSE 89; RESP 20; TEMP 36.7; O2SAT 94
== END 2025-05-06 17:53 | disposition home or self-care (01) ==
PROVIDERS: Emergency Provider Student in an Organized Health Care Education/Training Program; Family Provider Physician Assistant; PCP Family Medicine
DX: M79.641 Pain in right hand (principal); M79.642 Pain in left hand
CPT/HCPCS: 96372; 99283; J2270